=== PATIENT | female | born 1930 | race Caucasian/White ===

== ENCOUNTER 2017-08-02 17:45 | Inpatient (IN) | payer OTHER ==
[~2017-08-02] VITALS: Ht 157.5 cm; Wt 59.9 kg
[2017-08-05] MEDS ORDERED: OMEPRAZOLE20 MG PO (11:06)
[2017-08-05] MEDS ORDERED: ASA-EC81 MG PO (11:06)
[2017-08-05] MEDS ORDERED: NORVASC5 MG PO (11:07)
[2017-08-05] MEDS ORDERED: LEVO-T50 MCG PO (11:07)
[2017-08-05] MEDS ORDERED: ARICEPT5 MG PO (11:07)
[2017-08-05] MEDS ORDERED: TOPROL XL100 M1 PO (11:07)
[2017-08-06] MEDS ORDERED: XARELTO10 MG PO (14:33)
[2017-08-06] MEDS ORDERED: CIPRO500 MG PO (14:33)
[2017-08-06] MEDS ORDERED: PERCOCET 5-3251 EACH PO (14:33)
== END 2017-08-06 17:54 | DRG 470 ==
LOC: ER 17:45 → SEC-K 08-03 08:24 → SURH 08-03 08:24
PROVIDERS: Orthopaedic Surgery
PROC: 0MBM0ZZ Excision of Left Hip Bursa and Ligament, Open Approach (ICD-10-PCS; 2017-08-04)
PROC: 0SRS0JZ Replacement of Left Hip Joint, Femoral Surface with Synthetic Substitute, Open Approach (ICD-10-PCS; principal; 2017-08-04 13:00)
DX: S72.032A Displaced midcervical fracture of left femur, initial encounter for closed fracture (principal); D62 Acute posthemorrhagic anemia; S42.252A Displaced fracture of greater tuberosity of left humerus, initial encounter for closed fracture; W18.39XA Other fall on same level, initial encounter; Y93.89 Activity, other specified; Y92.89 Other specified places as the place of occurrence of the external cause; Y99.8 Other external cause status; M81.0 Age-related osteoporosis without current pathological fracture; M16.12 Unilateral primary osteoarthritis, left hip; M70.72 Other bursitis of hip, left hip; I10 Essential (primary) hypertension; E03.8 Other specified hypothyroidism; G30.8 Other Alzheimer's disease; F02.80 Dementia in other diseases classified elsewhere, unspecified severity, without behavioral disturbance, psychotic disturbance, mood disturbance, and anxiety; K21.9 Gastro-esophageal reflux disease without esophagitis

== ENCOUNTER 2017-08-06 20:48 | Inpatient (IN) | payer OTHER ==
[~2017-08-06] VITALS: Ht 157.5 cm; Wt 59.9 kg
[~2017-08-06 20:48] MED LIST: ARICEPT5 MG PO; ASA-EC81 MG PO; CIPRO500 MG PO; LEVO-T50 MCG PO; NORVASC5 MG PO; OMEPRAZOLE20 MG PO; PERCOCET 5-3251 EACH PO; TOPROL XL100 M1 PO; XARELTO10 MG PO
== END 2017-08-14 20:50 | disposition home or self-care (01) | DRG 280 ==
LOC: ER 20:48 → SEC-K 08-07 08:51 → SURG 08-07 16:06 → MEDI 08-07 16:06 → SURG 08-07 16:16
PROC: 3E0F7GC Introduction of Other Therapeutic Substance into Respiratory Tract, Via Natural or Artificial Opening (ICD-10-PCS; principal; 2017-08-07)
PROC: 4A033R1 Measurement of Arterial Saturation, Peripheral, Percutaneous Approach (ICD-10-PCS; 2017-08-07)
PROC: BW24Y0Z Computerized Tomography (CT Scan) of Chest and Abdomen using Other Contrast, Unenhanced and Enhanced (ICD-10-PCS; 2017-08-07)
PROC: B54DZZZ Ultrasonography of Bilateral Lower Extremity Veins (ICD-10-PCS; 2017-08-07)
PROC: B246ZZZ Ultrasonography of Right and Left Heart (ICD-10-PCS; 2017-08-07)
PROC: 4A12X4Z Monitoring of Cardiac Electrical Activity, External Approach (ICD-10-PCS; 2017-08-07)
PROC: 30233N1 Transfusion of Nonautologous Red Blood Cells into Peripheral Vein, Percutaneous Approach (ICD-10-PCS; 2017-08-08)
PROC: CB121ZZ Planar Nuclear Medicine Imaging of Lungs and Bronchi using Technetium 99m (Tc-99m) (ICD-10-PCS; 2017-08-11)
PROC: B246ZZ4 Ultrasonography of Right and Left Heart, Transesophageal (ICD-10-PCS; 2017-08-13)
DX: I21.4 Non-ST elevation (NSTEMI) myocardial infarction (principal); I50.33 Acute on chronic diastolic (congestive) heart failure; D62 Acute posthemorrhagic anemia; J90 Pleural effusion, not elsewhere classified; J98.11 Atelectasis; N39.0 Urinary tract infection, site not specified; I11.0 Hypertensive heart disease with heart failure; K21.9 Gastro-esophageal reflux disease without esophagitis; E03.8 Other specified hypothyroidism; R09.02 Hypoxemia; G30.8 Other Alzheimer's disease; F02.80 Dementia in other diseases classified elsewhere, unspecified severity, without behavioral disturbance, psychotic disturbance, mood disturbance, and anxiety; I24.9 Acute ischemic heart disease, unspecified; I27.29 Other secondary pulmonary hypertension; Z96.642 Presence of left artificial hip joint; B96.20 Unspecified Escherichia coli [E. coli] as the cause of diseases classified elsewhere; B96.4 Proteus (mirabilis) (morganii) as the cause of diseases classified elsewhere; Z16.12 Extended spectrum beta lactamase (ESBL) resistance; S80.822A Blister (nonthermal), left lower leg, initial encounter